=== PATIENT | male | born 1935 ===

== ENCOUNTER 2022-03-11 18:40 | Inpatient (IN) | payer MEDICARE, OTHER ==
[~2022-03-11] VITALS: Ht 177.8 cm; Wt 117.9 kg
[2022-03-12] MEDS ORDERED: INSULIN LI100 UNIT/6 SC (00:31)
[2022-03-12] MEDS ORDERED: BASAGLAR K100 UNIT/3 (00:31)
[2022-03-12] MEDS ORDERED: FUROSEMIDE20 MG PO (00:34)
[2022-03-12] MEDS ORDERED: ELIQUIS2.5 M1 PO (00:35)
[2022-03-12 01:05] LABS: Bicarbonate Venous 17.8 mmol/L (24.0-30.0); PCO2 Venous 41.2 mmHg (38-42)
[2022-03-12 01:06] LABS: pH Blood Venous 7.27 (7.34-7.37)
[2022-03-12 01:17] LABS: BASOPHILS ABSOLUTE AUTO 0.04 K/mm3 (0.00-0.23); BASOPHILS PERCENT AUTO 0 % (0-2); EOSINOPHILS PERCENT AUTO 0 % (0-6); Hemoglobin 10.4 g/dL (13.5-17.5); IMMATURE GRAN ABSOLUTE AUTO 0.63 K/mm3 (0.00-0.10); IMMATURE GRAN PERCENT AUTO 3 % (0-1); LYMPHOCYTES ABSOLUTE AUTO 1.51 K/mm3 (0.84-5.20); LYMPHOCYTES PERCENT AUTO 7 % (21-46); MONOCYTES ABSOLUTE AUTO 1.61 K/mm3 (0.16-1.47); MONOCYTES PERCENT AUTO 8 % (4-13); Mean Corpuscular HGB 36.4 pg (26.0-34.0); Mean Corpuscular HGB Conc 33.5 g/dL (31.5-36.5); Mean Corpuscular Volume 108 fL (80-100); Mean Platelet Volume 9.7 fL (9.1-12.4); NEUTROPHILS PERCENT AUTO 82 % (41-73); NRBC ABSOLUTE 0.53 K/mm3 (0.00-0.02); NRBC Auto 2.5 /100 WBC (0.0-0.2); Platelet Count 452 K/mm3 (150-400); RDW Coefficient Variation 14.7 % (11.7-14.2); RDW Standard Deviation 57.2 fL (35.1-46.3); Red Blood Cell Count 2.86 M/mm3 (4.30-5.90); White Blood Cell Count 20.79 K/mm3 (4.00-11.30)
[2022-03-12 01:49] LABS: Anti-Xa UFH, PHA Monitoring 0.21 IU/mL; International Normalized Ratio 1.17; Prothrombin Time Results 12.2 Sec (9.7-11.5)
[2022-03-12 01:59] LABS: Albumin, Blood 2.3 g/dL (3.4-5.0); Anion Gap 12 mmol/L (6-16); Blood Urea Nitrogen 89 mg/dL (8-24); Bun/Creatinine Ratio 17.6 (12.0-20.0); CO2, Blood 19 mmol/L (21-32); Chloride, Blood 109 mmol/L (98-108); Creatinine, Blood 5.06 mg/dL (0.60-1.20); Ferritin, Serum 200 ng/mL (26-388); Glomerular Filtration Rate 10 (60-); Glucose, Blood 206 mg/dL (70-99); Iron Serum 58 ug/dL (65-175); Percent Saturation 29.6 % (20.0-50.0); Phosphorus, Blood 4.6 mg/dL (2.5-4.9); Potassium, Blood 5.6 mmol/L (3.5-5.5); Sodium, Blood 140 mmol/L (136-145); Total Iron Binding Capacity 196 ug/dL (250-450)
[2022-03-12] MEDS ORDERED: ALLO300 PO (03:45)
[2022-03-12] MEDS ORDERED: ASPI81CH PO (03:46)
[2022-03-12] MEDS ORDERED: ATOR40TA PO (03:46)
[2022-03-12] MEDS ORDERED: CALC.25 PO (03:47)
[2022-03-12] MEDS ORDERED: CIPR500 PO (03:48)
[2022-03-12] MEDS ORDERED: FERSU300 PO (03:49)
[2022-03-12] MEDS ORDERED: GEMF600 PO (03:50)
[2022-03-12] MEDS ORDERED: LATA.005SO RIGHTEYE (03:50)
[2022-03-12] MEDS ORDERED: NYSTOP15 GM TOP (04:04)
[2022-03-12] MEDS ORDERED: OMEP20ER PO (04:05)
[2022-03-12] MEDS ORDERED: SYSTANE BALANCE10 ML OP (04:06)
[2022-03-12] MEDS ORDERED: Vitamin B-12100 MCG PO (04:07)
[2022-03-12] MEDS ORDERED: ACET325 (04:08)
[2022-03-12] MEDS ORDERED: THERA-D2000 UNIT PO (04:08)
[2022-03-12] MEDS ORDERED: Keflex250 MG PO (04:09)
--- NOTE | 2022-03-12 05:07 | NUR ---
PATIENT TO ROOM VIA EMS/LIFE FLIGHT AT 2340. PATIENT IS ALERT AND ORIENTED X4. MOVES ALL EXTREMETIES AND FOLLOWS COMMANDS, FENERALIZED WEAKNESS AND RLE WEAKNESS. 02 SATS >93% ON 2L VIA NC, DENIES SOB, LS DIM BUT CLEAR. ATTEMPTED TO WEAR CPAP BUT UNABLE TO USE OUR MASK. HR A. FIB, WITH BBB AT 90s-110. BP HYPOTENSIVE, LEVO INF. HEPARIN GTT STARTED PER HOSPITALIST. REMOVED MOLINA THAT WAS IN PLACE AND INSERTED NEW MOLINA, NO URINE OUTPUT, BLADDER SCAN DONE AND NO URINE NOTED. PURULENT DISCHARGE FROM PENIS. PATIENT HAD SMALL SOFT BROWN BM. CRITICAL PH CALLED TO HOSPITALIST, BICARB GTT STARTED. PHOTOS OF WOUNDS IN CHART. CALL LIGHT IN REACH. SEE ADMIT ASSESSMENT FOR MORE INFORMATION.
[2022-03-12 06:01] LABS: BASOPHILS ABSOLUTE AUTO 0.05 K/mm3 (0.00-0.23); BASOPHILS PERCENT AUTO 0 % (0-2); EOSINOPHILS PERCENT AUTO 0 % (0-6); Hematocrit 33.4 % (37.0-53.0); Hemoglobin 10.9 g/dL (13.5-17.5); IMMATURE GRAN ABSOLUTE AUTO 0.89 K/mm3 (0.00-0.10); IMMATURE GRAN PERCENT AUTO 4 % (0-1); LYMPHOCYTES ABSOLUTE AUTO 1.23 K/mm3 (0.84-5.20); LYMPHOCYTES PERCENT AUTO 5 % (21-46); MONOCYTES ABSOLUTE AUTO 1.97 K/mm3 (0.16-1.47); MONOCYTES PERCENT AUTO 8 % (4-13); Mean Corpuscular HGB 35.4 pg (26.0-34.0); Mean Corpuscular HGB Conc 32.6 g/dL (31.5-36.5); Mean Corpuscular Volume 108 fL (80-100); Mean Platelet Volume 9.6 fL (9.1-12.4); NEUTROPHILS ABSOLUTE AUTO 21.54 K/mm3 (1.96-9.15); NEUTROPHILS PERCENT AUTO 84 % (41-73); NRBC ABSOLUTE 0.63 K/mm3 (0.00-0.02); NRBC Auto 2.5 /100 WBC (0.0-0.2); Platelet Count 460 K/mm3 (150-400); RDW Coefficient Variation 14.7 % (11.7-14.2); RDW Standard Deviation 56.8 fL (35.1-46.3); Red Blood Cell Count 3.08 M/mm3 (4.30-5.90); White Blood Cell Count 25.68 K/mm3 (4.00-11.30)
[2022-03-12 06:18] LABS: Albumin, Blood 2.3 g/dL (3.4-5.0); Anion Gap 9 mmol/L (6-16); Blood Urea Nitrogen 90 mg/dL (8-24); Bun/Creatinine Ratio 17.1 (12.0-20.0); CO2, Blood 20 mmol/L (21-32); Calcium, Blood 8.9 mg/dL (8.5-10.1); Chloride, Blood 109 mmol/L (98-108); Creatinine, Blood 5.26 mg/dL (0.60-1.20); Glomerular Filtration Rate 10 (60-); Glucose, Blood 199 mg/dL (70-99); Potassium, Blood 6.4 mmol/L (3.5-5.5); Sodium, Blood 138 mmol/L (136-145)
[2022-03-12 06:21] LABS: Source, Urine Foley catheter
[2022-03-12 06:24] LABS: Bilirubin, Urine Neg (Neg); Blood, Urine 5+ (Neg); Glucose Qualitative, Urine 1+ (Neg); Ketones, Urine 1+ (Neg); Leukocyte Esterase, Urine 3+ (Neg); Nitrite, Urine Neg (Neg); Protein, Urine 4+ (Neg); Urobilinogen, Urine NORM (Normal)
[2022-03-12 06:32] LABS: Appearance, Urine Cloudy (Clear); Color, Urine Red (P-Yellow)
[2022-03-12 06:33] LABS: Amorphous Light (0-Heavy); Bacteria Many /hpf; Red Blood Cells, Urine TNTC /hpf (0-2); Squamous Epithelial Cells Rare /hpf (Few)
[2022-03-12 06:34] LABS: White Blood Cells, Urine TNTC /hpf (0-5)
--- NOTE | 2022-03-12 07:15 | NUR ---
Assumed care of pt at 0700. Report received from Bianca ARCOS. Pt is A&O x 4. Answers questions, follows commands, verbalizes needs. Pleasant and cooperative with care. Pt is wearing 2 LPM NC for SpO2 90% or greater. Tachycardic per montior, with BBB. Hypotensive. Receiving 10 mcg/min levophed, vasopression 0.04 units/minute.
--- NOTE | 2022-03-12 07:30 | NUR ---
Labile blood pressure reading. BP cuff on right upper arm. Unable to verify SBP with doppler because artery not compressing with cuff fully inflated. Able to verify BP with radial cuff and doppler.
--- NOTE | 2022-03-12 08:45 | NUR ---
Dr Stallings at bedside. Pt currently receiving echocardiogram. Provider states plan for patient to receive dialysis catheter today. Notified hospitalist that pt has increasing vasopressor requirements and that whizzer hand will be placing dialysis catheter. Order received for whizzer hand consult for line placement and ongoing management. Consult discussed with Dr Martin. Notified provider of echocardiogram results. Consult placed for Dr Sánchez.
--- NOTE | 2022-03-12 10:14 | NUR ---
Echocardiogram completed with stat overread requested and performed by Dr. Sánchez.
--- NOTE | 2022-03-12 10:25 | NUR ---
Pt is alert, oriented. He's pleasant and cooperative. He's being prepped for pericardial effusion drainage by Dr. Sánchez. Dr. Nash is at bedside with lithopone charger and bedside RN Yeimi. Update provided to pt's daughters Hiral and Jennifer, who identifies as an RN. Pt names Hiral as primary contact. Pt going to quality lab technician shortly. He will remain a full code at this time, and Dr. Martin will speak to pt directly regarding his wishes. Per Hiral, pt has not spoken to either daughter about his preferences. Plan to continue updating Hiral as the day progresses.
--- NOTE | 2022-03-12 11:35 | NUR ---
Patient back to microbiology lab analyst for pericardiocentesis. Prior to pt departure, arterial line placed for invasive BP measurement. Significant discrepancy noted between IBP and NIBP. Levophed decreased to 12 mcg/min prior to pt departure.
[2022-03-12 13:05] LABS: Automated BF RBC Count 2.479 M/mm3 (0-0); Automated BF WBC Count 3.679 K/mm3 (0-999); Body Fluid WBC Count 3679 /mm3 (0-999); RBC Count, Body Fluid 2479000 /mm3 (0-0)
[2022-03-12 13:39] LABS: Uric Acid, Blood 3.9 mg/dL (3.5-7.2)
[2022-03-12 14:05] LABS: Albumin, Body Fluid 1.8 g/dL; Glucose, Body Fluid 138 mg/dL
[2022-03-12 14:15] LABS: pH, Body Fluid 7.5
[2022-03-12 14:16] LABS: Total Cell Count, Body Fluid 100
[2022-03-12 14:19] LABS: Appearance, Body Fluid Bloody (Clear); Color, Body Fluid Red (None-Yellow)
[2022-03-12 14:25] LABS: Protein, Body Fluid 5.6 g/dL
[2022-03-12 14:49] LABS: Lactate Dehydrogenase, Body Fl 1786 U/L
--- NOTE | 2022-03-12 15:00 | NUR ---
Patient arrived back from vat house laborer at 1202 with peric[address] drain in place. On arrival, levophed and vasopressin off. Art line zeroed on arrival back to room. Levophed restarted at 2 mcg/min due to MAP less than 65. Per report from vat house laborer staff, 880 mL of ashley blood appearing drainage aspirated from drain. Dialysis catheter placed by Dr Martin to right neck. Plan for pt to continue with dialysis.
[2022-03-12 16:24] LABS: Hematocrit 30.3 % (37.0-53.0); Hemoglobin 9.7 g/dL (13.5-17.5)
--- NOTE | 2022-03-12 16:53 | NUR ---
Pt currently receiving dialysis. Levophed remains at 2 mcg/min. 67 mL of ashley red blood aspirated from port. Flushed with heparin. Pt tolerated well. H&H ordered by Dr Martin. Results reported to provider; plan to recheck at 2[address]. Cl[address] Dr Stallings that renal panel / potassium recheck tomorrow AM is acceptable; provider states this is okay however it can be rechecked sooner if pt has cardiac irregularities.
--- NOTE | 2022-03-12 18:13 | NUR ---
SUMMARY Neuro: Pt A&O x 4. Hard of hearing. Answers questions, follows commands, verbalizes needs. Pleasant and cooperative with care. Musculoskeletal: Moves all extremities with equal strength and range of motion. Limitation to hip flexion and movement of RLE due to right femoral artery line. Respiratory: Lungs diminished t/o. No cough. SpO2 90% or greater RA. Edema to BLE, unchanged from initial assessment. Cardiac: Vasopressor requirements significantly decreased after returning from cardiac orthodontic laboratory technician. HR improved. At beginning of shift, HR was tachcardic, regular, with BBB and no identifyable P waves. HR is now in 70s. Appears to be SR with BBB and 1st degree HB. Art line present to R groin; remains in place due to difficulty obtaining NIBP. Color, sensation, pulses, capillary refill equal BLE. Edema to BLE unchanged from initial assessment. GI: Hypoactive BT. NPO during shift due to procedures and frail medical state. Plan to provide pt with food/drink as he expresses desire. No BM this shift; no guiac sent. : Anuria. 20 mL of dark, tea urine drained this shift. Skin: Unchanged from initial assessment. Psychosocial: Pt in good spirits. Jokes with staff. Update given to daughters Hiral and Jennifer. Per pt, Hiral is his alternative decision maker.
--- NOTE | 2022-03-12 20:34 | NUR ---
ASSUMED CARE AT 1900 PATIENT IS ALERT AND ORIENTED X4, FOLLOWS COMMANDS, MOVES ALL EXTREMITIES. 02 SATS 98% ON RA, LS DIMINISHED T/O. HR SR WITH BBB 60s-70s, OCCASIONAL PVCs. LEVOPHED ON SB AT START OF SHIFT, PATIENT BLOOD PRESSURE SLOWLY DECLINED WITH A MAP IN THE 50s, LEVOPHED RESTARTED AT 2 MCG/MIN, WILL TITRATE NEEDED ART LINE IN PLACE . DRAINED PERICARDIAL DRAIN AT APPROX. 2000 WITH BLASTING GANG MINER AT BEDSIDE, SITE REMAINED STERILE, 100 MLS SNAGUINEOUS FLUID, URESIL TUBING FLUSHED WITH STERILE FLUSH, AND PERICARDIAL DRAIN FLUSHED WITH 5 MLS [address] STOPCOCK CLOSED. PATIENT NO LONGER HAVING REGULAR PVCs. DRESSING AROUND DRAIN C/D/I. DENIES CP/PRESSURE. MOLINA PATENT AND DRAINING MINIMAL AMOUNT OF CORNELL URINE. RIGHT TRIALYSIS CATHETER IN PLACE, BLEEDING FROM SITE SEEMS TO HAVE STOPPED. PATIENT REPOSITIONED, CALL LIGHT IN REACH. SEE SHIFT ASSESSMENT FOR MORE INFORMATION.
[2022-03-12 22:29] LABS: Hematocrit 25.3 % (37.0-53.0); Hemoglobin 8.3 g/dL (13.5-17.5)
[2022-03-13 00:49] LABS: BASOPHILS ABSOLUTE AUTO 0.01 K/mm3 (0.00-0.23); BASOPHILS PERCENT AUTO 0 % (0-2); EOSINOPHILS PERCENT AUTO 0 % (0-6); Hematocrit 24.9 % (37.0-53.0); Hemoglobin 8.2 g/dL (13.5-17.5); IMMATURE GRAN ABSOLUTE AUTO 0.16 K/mm3 (0.00-0.10); IMMATURE GRAN PERCENT AUTO 1 % (0-1); LYMPHOCYTES PERCENT AUTO 9 % (21-46); MONOCYTES ABSOLUTE AUTO 0.73 K/mm3 (0.16-1.47); MONOCYTES PERCENT AUTO 6 % (4-13); Mean Corpuscular HGB 34.5 pg (26.0-34.0); Mean Corpuscular HGB Conc 32.9 g/dL (31.5-36.5); Mean Corpuscular Volume 105 fL (80-100); Mean Platelet Volume 9.6 fL (9.1-12.4); NEUTROPHILS ABSOLUTE AUTO 10.81 K/mm3 (1.96-9.15); NEUTROPHILS PERCENT AUTO 84 % (41-73); NRBC ABSOLUTE 0.24 K/mm3 (0.00-0.02); NRBC Auto 1.9 /100 WBC (0.0-0.2); Platelet Count 228 K/mm3 (150-400); RDW Coefficient Variation 14.3 % (11.7-14.2); Red Blood Cell Count 2.38 M/mm3 (4.30-5.90); White Blood Cell Count 12.81 K/mm3 (4.00-11.30)
[2022-03-13 01:06] LABS: Albumin, Blood 1.9 g/dL (3.4-5.0); Anion Gap 7 mmol/L (6-16); Blood Urea Nitrogen 68 mg/dL (8-24); Bun/Creatinine Ratio 15.7 (12.0-20.0); CO2, Blood 28 mmol/L (21-32); Chloride, Blood 103 mmol/L (98-108); Creatinine, Blood 4.34 mg/dL (0.60-1.20); Glomerular Filtration Rate 13 (60-); Glucose, Blood 123 mg/dL (70-99); Phosphorus, Blood 4.8 mg/dL (2.5-4.9); Potassium, Blood 5.3 mmol/L (3.5-5.5); Sodium, Blood 138 mmol/L (136-145)
--- NOTE | 2022-03-13 01:20 | NUR ---
2359- PATIENT BECAME BRADYCARDIC HR DOWN TO 49, AFTER A MINUTE OR SO PATIENTS HR ABOVE 60 AGAIN. ART LINE IN PLACE AND BP REMAINS WITH MAP IN THE 60s, TITRATING LEVO PRN. 0054- PATIENT BECAME BRADYCARDIC AGAIN HR OF 46, DID NOT SUSTAIN FOR MORE THAN A MINUTE OR TWO. CHECKED LABS AND DID AND EKG. DR. SCRUGGS CALLED AND NOTIFIED OF BRADYCARDIC EPISODES. TO CALL IF PATIENT MAINTAINS. TELE STRIPS PRINTED AND IN CHART.
--- NOTE | 2022-03-13 03:32 | NUR ---
0316- WHILE GIVING THE PATIENT A BED BATH WE TURNED HIM TO HIS RIGHT SIDE TO CHANGE LINEN AND WASH HIS BACK, PATIENT BECAME BRADYCARDIC DOWN TO 26. LAID PATIENT FLAT IMMEDIATELY THEN TURNED HIM SLIGHTLY TO THE LEFT, HR CAME BACK UP TO 60s. PATIENT ALERT AND RESPONSIVE THE ENTIRE TIME.
--- NOTE | 2022-03-13 05:51 | NUR ---
SHIFT SUMMARY PATIENT REMAINS ALERT AND ORIENTED. 02 SATS >95% ON RA. PATIENT CONTINUES TO HAVE BRIEF BRADYCARDIC EPISODES WITH A HR IN THE 40s, SEE PREVIOUS NOTES. HR CURRENTLY A. FIB BBB AT 60, BP STABLE, ART LINE REMIANS IN PLACE, NON-INVASIVE BP NOT MATCHING ART LINE READING. PERICARDIAL DRAIN DRAINED EVERY 4 HOURS, OUTPUT OF 100, 33, THEN 14 THIS SHIFT, DRAIN FLUSHED WITH HEPARIN EACH TIME. DRESSING TO DRAIN C/D/I. MOLINA PATENT AND DRAINING TO GRAVITY, 40 MLS OUT THIS SHIFT. PATIENT REPOSITIONED MUCH HR WOULD ALLOW, POWDER APPLIED TO FOLDS. CALL LIGHT IN REACH.
[2022-03-13 05:59] LABS: BASOPHILS ABSOLUTE AUTO 0.01 K/mm3 (0.00-0.23); BASOPHILS PERCENT AUTO 0 % (0-2); EOSINOPHILS PERCENT AUTO 0 % (0-6); Hematocrit 23.5 % (37.0-53.0); Hemoglobin 7.9 g/dL (13.5-17.5); IMMATURE GRAN ABSOLUTE AUTO 0.11 K/mm3 (0.00-0.10); IMMATURE GRAN PERCENT AUTO 1 % (0-1); LYMPHOCYTES ABSOLUTE AUTO 0.91 K/mm3 (0.84-5.20); LYMPHOCYTES PERCENT AUTO 9 % (21-46); MONOCYTES ABSOLUTE AUTO 0.55 K/mm3 (0.16-1.47); MONOCYTES PERCENT AUTO 5 % (4-13); Mean Corpuscular HGB 36.2 pg (26.0-34.0); Mean Corpuscular HGB Conc 33.6 g/dL (31.5-36.5); Mean Corpuscular Volume 108 fL (80-100); Mean Platelet Volume 9.9 fL (9.1-12.4); NEUTROPHILS ABSOLUTE AUTO 9.02 K/mm3 (1.96-9.15); NEUTROPHILS PERCENT AUTO 85 % (41-73); NRBC Auto 1.9 /100 WBC (0.0-0.2); Platelet Count 227 K/mm3 (150-400); RDW Coefficient Variation 14.3 % (11.7-14.2); RDW Standard Deviation 54.4 fL (35.1-46.3); Red Blood Cell Count 2.18 M/mm3 (4.30-5.90)
[2022-03-13 06:27] LABS: Albumin, Blood 1.9 g/dL (3.4-5.0); Anion Gap 8 mmol/L (6-16); Blood Urea Nitrogen 71 mg/dL (8-24); CO2, Blood 26 mmol/L (21-32); Calcium, Blood 7.7 mg/dL (8.5-10.1); Chloride, Blood 105 mmol/L (98-108); Creatinine, Blood 4.72 mg/dL (0.60-1.20); Glomerular Filtration Rate 11 (60-); Glucose, Blood 118 mg/dL (70-99); Phosphorus, Blood 5.2 mg/dL (2.5-4.9); Potassium, Blood 5.6 mmol/L (3.5-5.5); Sodium, Blood 139 mmol/L (136-145)
--- NOTE | 2022-03-13 07:15 | NUR ---
Assumed care of pt at 0700. Report received from Bianca ARCOS. Pt A&O x 4. Answers questions, follows commands, verbalizes needs. Pleasant and cooperative with care. SpO2 90% or greater with room air. Atrial fibrillation per monitor with rate in 60s. BP stable. Levophed and vasopressin off.
--- NOTE | 2022-03-13 11:12 | NUR ---
Echocardiogram completed.
--- NOTE | 2022-03-13 13:09 | NUR ---
Pt is currently receiving dialysis, required levophed to be restarted at 2 mcg/min due to SBP 70s and MAP 40s per arterial line. Arterial line BPs still do not correlate with NIBP blood pressures. Dr Sánchez in to see patient. Discussed pt's transient bradycardia. Discussed drainage from pericardial drain. Plan to continue with existing plan of care.
--- NOTE | 2022-03-13 18:06 | NUR ---
SUMMARY Neuro: Pt A&O x 4. Hard of hearing. Answers questions, follows commands, verbalizes needs. Pleasant and cooperative with care. Musculoskeletal: Moves all extremities with equal strength and range of motion. Limitation to hip flexion and movement of RLE due to right femoral artery line. Respiratory: Lungs diminished t/o. No cough. SpO2 90% or greater RA. Edema to BLE, unchanged from initial assessment. Cardiac: Atrial fibrillation per monitor. BP dropped during dialysis and patient required maximum of 2 mcg/min levophed. Color, sensation, pulses, capillary refill BLE. Requires arterial line as it still does not correlate with NIBP. GI: Pt started with puree diet and thickened liquids today. No BM this shift. Unable to send guiac. : Anuria. Received hemodialysis today Skin: Unchanged from initial assessment. Psychosocial: Pt not as cheerful as yesterday. Affect is more flat. Family plans to visit tomorrow.
--- NOTE | 2022-03-13 23:23 | NUR ---
ASSUMED CARE AT 1900 PT LAYING IN BED SLEEPING AT CHANGE OF SHIFT. PT IS RESPONSIVE TO VERBAL STIMULI BUT SLEEPS WHEN NOT STIMULATED; APPREARS VERY WEAK; ORIENTED TO ALL EXCEPT DATE AND TIME. AFREBRILE. SPO2 >90% ON RA. HR VARIES, WHEN AT REST 50-70'S, RHYTHM AFLUTTER; WHEN TURNED TOWRADS THE RT SIDE, HR DECREASE TO 40'S, ASYPTOMATIC. SBP 100-130'S; MAP 60-70'S; ART LINE TO RT GROIN WITH DRESSING C/D/I. MOLINA IN PLACE WITH MINIMAL OUTPUT. BRUISES SCATTERED T/O BUE AND BLE. PERICARDIAL DRAIN IN PLACE TO LOWER STERNUM; 20ML OF SANGUINOUS FLUID DRAINED FOLLOWED BY FLUSHING WITH HEPARIN; DRESSING C/D/I. SEE SHIFT ASSESSMENT FOR FULL ASSESSMENT.
[2022-03-14 04:20] LABS: BASOPHILS ABSOLUTE AUTO 0.01 K/mm3 (0.00-0.23); BASOPHILS PERCENT AUTO 0 % (0-2); EOSINOPHILS PERCENT AUTO 0 % (0-6); Hematocrit 24.3 % (37.0-53.0); Hemoglobin 7.9 g/dL (13.5-17.5); IMMATURE GRAN ABSOLUTE AUTO 0.19 K/mm3 (0.00-0.10); IMMATURE GRAN PERCENT AUTO 2 % (0-1); LYMPHOCYTES ABSOLUTE AUTO 1.35 K/mm3 (0.84-5.20); LYMPHOCYTES PERCENT AUTO 10 % (21-46); MONOCYTES ABSOLUTE AUTO 0.79 K/mm3 (0.16-1.47); MONOCYTES PERCENT AUTO 6 % (4-13); Mean Corpuscular HGB 33.8 pg (26.0-34.0); Mean Corpuscular HGB Conc 32.5 g/dL (31.5-36.5); Mean Corpuscular Volume 104 fL (80-100); Mean Platelet Volume 9.2 fL (9.1-12.4); NEUTROPHILS ABSOLUTE AUTO 10.71 K/mm3 (1.96-9.15); NEUTROPHILS PERCENT AUTO 82 % (41-73); NRBC ABSOLUTE 0.35 K/mm3 (0.00-0.02); NRBC Auto 2.7 /100 WBC (0.0-0.2); Platelet Count 230 K/mm3 (150-400); RDW Coefficient Variation 14.2 % (11.7-14.2); RDW Standard Deviation 52.4 fL (35.1-46.3); Red Blood Cell Count 2.34 M/mm3 (4.30-5.90); White Blood Cell Count 13.05 K/mm3 (4.00-11.30)
[2022-03-14 04:35] LABS: Bun/Creatinine Ratio 14.6 (12.0-20.0); Calcium, Blood 7.6 mg/dL (8.5-10.1); Creatinine, Blood 4.04 mg/dL (0.60-1.20); Potassium, Blood 4.7 mmol/L (3.5-5.5)
[2022-03-14 05:11] LABS: HBSAG SCREEN Negative (Negative); HCV AB 0.1 (0.0-0.9); HEP A AB, IGM Negative (Negative); HEP B CORE AB, IGM Negative (Negative)
--- NOTE | 2022-03-14 06:10 | NUR ---
END OF SHIFT SUMMARY PT WAS ABLE TO SLEEP MOST OF THE NIGHT. HE IS ALERT/ORIENTED X3, NOT TO DATE OR TIME; PT IS WEAK AND LETHARGIC. SPO2 >95% ON RA. AFEBRILE. LEVOPHED STARTED WHILE PT WAS SLEEPING DUE TO SBP DECREASING TO 100'S AND MAP IN THE 40'S; PT IS VERY SENSATIVE TO LEVOPHED; TITRATED FROM SB TO 2MCG/MIN DUE TO LABILE PRESSURES; LEVOPHED INFUSING NOW AT 1MCG/MIN; SBP 120-170'S, MAP 50-70'S. HR 40-70. PERICARDIAL DRAIN WITH 55ML OUT THIS SHIFT; DRESSING C/D/I. MOLINA IN PLACE WITH 48ML OUTPUT. BLE WITH 4+ PITTING EDEMA, RLE WEEPING. ART LINE TO RT GROIN PATENT. TRIALYSIS CATH TO RIJ IN PLACE AND INFUSING. WILL REPORT TO AM RN WHEN AVAILABLE.
--- NOTE | 2022-03-14 07:15 | NUR ---
Assumed care of pt at 0700 from Lali ARCOS. Pt A&O x 4. Answers questions, follows commands, verbalizes needs. Pleasant and cooperative with care. Levophed at 1 mcg/min for MAP greater than 65 per arterial line. A fib per monitor with controlled rate. SpO2 90% or greater RA.
--- NOTE | 2022-03-14 14:00 | NUR ---
Dr Sánchez in to see patient. Provider removed pericardial drain. Petroleum gauze, 2x2, and tegaderm applied to site. Serosanguinous drainage from site. Dressing remains C/D/I. Provider states that eliquis will be held for several days and pt should not receive chemical VTE prophylaxis either for this period of time.
--- NOTE | 2022-03-14 17:17 | NUR ---
SUMMARY Neuro: Pt A&O x 4. Answers questions. Follows commands. Verbalizes needs. Pleasant and cooperative with care. Lethargic and falls asleep in the absence of stimulation. Musculoskeletal: Right groin arterial access precautions. Moves BUE and BLE. Requires total care for ADLs including repositioning, oral care, and feeding. Respiratory: Lungs clear t/o. Diminished in bases. SpO2 90% or greater with RA. Occasional dry cough. Cardiac: Heart rhythm fluctuates between atrial fibrillation and atrial flutter; rate 50s-80s. Per Dr Sánchez, no anticoagulation for atrial fibrillation or VTE prophylaxis to be given. Vasopressors off since pt received first dose of midodrine. Holding current dose of midodine for SBP 140 per arterial line. Insertion site at R groin free of drainage, Arterial line remains in place as NIBP does not correlate with invasive BP measurement. R brachial artery did not compress with manual BP measurement and doppler. L brachial NIBP offered inconsistent high/low readings per monitor. L/R radial offered MAP readings that varied by 10-20 mmHg in comparison to arterial line. Unable to utilize BLE for BP measurement due to weeping edema. Capillary refill <3 seconds BUE and BLE. Increasing edema BLE. New penile edema. Pericardial drain removed this shift by Dr Sánchez. GI: Hypoactive BT. Poor appetite. Between meal trays and PO medication administration, pt has had about 20 bites of puree diet today. No BM. Guiac not collected. : Anuria. 20 mL urine output this shift. Skin: Unchanged from initial assessment, with exception of pericardial drain site which is now dressed with Mextra Superabsorbant and tegaderm. No drainage noted to dressing. Psychosocial: Pt's daughters in town from [place] today. Plan to stay through weekend. Per family request, [facility] elders in to see patient and provide blessing. Pt's daughters requesting that pt transfer to different hospital when he is no longer requiring ICU level of care; they believe that pt will fail to thrive in absence of family due to long distance from [place]. They stated that even [facility] would be more favorable because pt's son lives there. Dr Puente notified and case management consult placed with aforemention details. Otherwise pt and family state satisfaction with care provided at this facility. Patient is withdrawn and flat affect in comparison to previous day shifts. Family encouraging patient to watch programs on TV that he enjoys.
--- NOTE | 2022-03-14 20:56 | NUR ---
ASSUMED CARE AT 1900 PT LAYING IN BED MORE ALERT DUE TO HIS DAUGHTERS BEING AT BEDSIDE. BOTH DAUGHTERS LEFT SHORTLY AFTER SHIFT CHANGE. PT IS MORE ORIENTED THAN PREVIOUS DAY; PT STATES THAT HE IS TIRED AND IS SLEEPING WHEN NOT STIMULATED. SPO2 >95% ON RA; HOME CPAP PROVIDED BY [facility] AND IS AT BEDSIDE; CPAP PLACED ON PT AFTER GIVEN TYLENOL FOR ACHINESS. HR 50-70'S; SBP 115-130, MAP 60-70'S; LEVOPHED OFF; PT STARTED ON MIDODRINE EARLIER TODAY; ART LINE TO RT GROIN IN PLACE WITH DRESSING C/D/I. EDEMA TO BLE WORSE THAN PREVIOUS DAY AND NOW STARTS AT HIS HIPS PROGRESSIVLY GETTING WORSE FURTHER DOWN HIS LEGS; RLE CONT TO WEEP. PT C/O ACID REFLEX, AT HOME HE STATES THAT HE EATS AND DRINKS SLOWLY AND THAT NORMALLY HELPS. PT ALSO SAID THAT HE HAS NOT BEEN EATING MUCH BECAUSE OF HIS REFLEX. MOLINA IN PLACE AND DRAINING MINIMAL URINE. DRESSING OVER PREVIOUS PERICARDIAL DRAIN SITE IS C/D/I, NO DRAINAGE NOTED ON DRESSING. SEE SHIFT ASSESSMENT FOR FULL ASSESSMENT.
[2022-03-15 04:27] LABS: BASOPHILS ABSOLUTE AUTO 0.02 K/mm3 (0.00-0.23); BASOPHILS PERCENT AUTO 0 % (0-2); EOSINOPHILS PERCENT AUTO 0 % (0-6); Hematocrit 24.7 % (37.0-53.0); Hemoglobin 8.2 g/dL (13.5-17.5); IMMATURE GRAN ABSOLUTE AUTO 0.26 K/mm3 (0.00-0.10); IMMATURE GRAN PERCENT AUTO 2 % (0-1); LYMPHOCYTES ABSOLUTE AUTO 1.44 K/mm3 (0.84-5.20); LYMPHOCYTES PERCENT AUTO 10 % (21-46); MONOCYTES ABSOLUTE AUTO 0.83 K/mm3 (0.16-1.47); MONOCYTES PERCENT AUTO 6 % (4-13); Mean Corpuscular HGB 34.9 pg (26.0-34.0); Mean Corpuscular HGB Conc 33.2 g/dL (31.5-36.5); Mean Corpuscular Volume 105 fL (80-100); Mean Platelet Volume 9.5 fL (9.1-12.4); NEUTROPHILS ABSOLUTE AUTO 11.32 K/mm3 (1.96-9.15); NEUTROPHILS PERCENT AUTO 82 % (41-73); NRBC ABSOLUTE 0.34 K/mm3 (0.00-0.02); NRBC Auto 2.5 /100 WBC (0.0-0.2); Platelet Count 243 K/mm3 (150-400); RDW Coefficient Variation 14.5 % (11.7-14.2); RDW Standard Deviation 53.2 fL (35.1-46.3); Red Blood Cell Count 2.35 M/mm3 (4.30-5.90); White Blood Cell Count 13.87 K/mm3 (4.00-11.30)
[2022-03-15 04:44] LABS: Bun/Creatinine Ratio 14.5 (12.0-20.0); Calcium, Blood 8.4 mg/dL (8.5-10.1); Creatinine, Blood 3.73 mg/dL (0.60-1.20); Magnesium, Blood 2.1 mg/dL (1.6-2.4); Phosphorus, Blood 4.6 mg/dL (2.5-4.9); Potassium, Blood 4.1 mmol/L (3.5-5.5)
--- NOTE | 2022-03-15 05:57 | NUR ---
END OF SHIFT SUMMARY PT SLEPT ON AND OFF ALL NIGHT; HE SEEMS TO BE MORE EXPRESSIVE AND LESS WITHDRAWN. PT IS A/O X4 AND ABLE TO MAKE HIS NEEDS KNOWN. SPO2 >95% ON RA; ATTEMPTED TO USE HOME CPAP AND PT COULD NOT BE COMFORTABLE WITH IT; RN AND RT ATTEMPTED SEVERAL TIMES TO ADJUST BUT PT JUST REFUSED AFTER A WHILE. PT PLACED BACK ON SMALL DOSE LEVOPHED WHILE SLEEPING DUE TO MAP IN LOW 50'S, HIGH 40'S; THIS WAS STARTED AFTER GIVING MIDODRINE; LEVOPHED INFUSING AT 1MCG/MIN; ART LINE TO RT GROIN DRESSING C/D/I. AFEBRILE. ONE SMALL BM THIS SHIFT. MOLINA IN PLACE WITH 45ML URINE OUTPUT. RLE CONT TO WEEP. DRESSING OVER PREVIOUS PERICARDIAL DRAIN SITE C/D/I, NO DRAINAGE NOTED. TRIALYSIS CATH TO RIJ PATENT. WILL REPORT TO AM RN WHEN AVAILABLE.
--- NOTE | 2022-03-15 07:23 | NUR ---
REPORT FROM PM JOSSELYN CHUA, PATIENTALERT AND ORIENTED [facility], MAKES NEEDS KNOWN, CALL LIGHT WITH IN REACH, NO DISTRESS, CALM AND PLEASANT THIS AM, DAUGHTERS TO BE IN TODAY
--- NOTE | 2022-03-15 10:20 | NUR ---
DR RUBIN ROUNDED AT 08, NO NEW ORDERS, REPORTED CMP, DIALYSIS TO BE DONE TODAY. 908 FACE TIME CALL WITH DR LIU, DIALYSIS STARTED, NO NEW CHANGES. DR BALL ROUNDED ORDERED A STAT ECHO TO SEE HOW THE PERICARDIAL EFFUSION HAS IMPROVED OR WORSENED. DR CHENG ROUNDED, PATIENT ONLY ON 1 MCG OF LEVOPHED, SBP 140, DR CHENG OKAY WAITING TO GIVE MIDODRINE AFTER DIALYSIS, PATIENTS DAUGHTERS AT BEDSIDE, HELPFUL WITH CARE. CALL LIGHT WITH IN REACH
--- NOTE | 2022-03-15 12:36 | NUR ---
3000 out with dialysis, kenzie and chavo daughters at bedside, left for lunch, patient repositioned, ate lunch hob 75%, patient belching, pleasant and cooperative, call light with in reach
--- NOTE | 2022-03-15 18:30 | NUR ---
PATIENT AWAKE, OREINTED, MAKES NEEDS KNOWN, SLOW TO RESPOND, NEEDS QUEING AT TIMES, PLEASANT AND COOPERATIVE TO CARE. LS DIMINSHED, CLEARS CONGESTION WITH COUGH, SATS 96% ON RA, ENCOURAGED TO DEEP BREATH AND COUGH. DENIES CP, ART LINE AND PERIPHERAL BP NOT CORRIALATED, BRACHIAL PULSES KING WIHT DOPPLER FOUND EASY, PATIENTS HEART RATE AND ART LINE DECREASE WHEN PATIENT COUGHS, SNEEZES, HICUPS, OR SWALLOWS, REPORTED TO DR CHENG POSSIBLE VASAL VAGAL, ART LINE TO STAY IN PLACE OF NOW PER DR CHENG, LEVOPHED OFF AT NOON TODAY. ATE ALL MEALS 20-40%, OUTPUT 120 MLS PER MOLINA, SCROTUMN SWOLLEN, CREAM TO BUTTOCK AND POWDER TO GROIN AND ABD FOLDS, RIGHT LEG ELEVATED WITH DRY FLOWS, WEEPING FROM BLISTERS, LEFT LEG ELEVATED EDEMATOUS BUT NOT WEEPING. FOLLOW UP ECHO DONE TODAY TO MONITOR PERICARDIAL EFFUSION, ECHO SHOWED IT HAD IMPROVED PER SOLUTION ENGINEER, CALL LIGHT WITH IN REACH, WCTM
--- NOTE | 2022-03-15 22:07 | NUR ---
ASSUMED PT CARE AT 1915 PT SITTING UP IN BED. ALERT AND ORIENTED X4. ABLE TO MAKE NEEDS KNOWN. ART LINE TO RIGHT GROIN; ZERO'D WITH GOOD PLETH AND DICROTIC NOTCH NOTED. NON-INVASIVE BP CUFF TO RIGHT UPPER ARM IS CORRELATING WELL. DRESSING IN PLACE TO OLD PERICARDIAL DRAIN SITE THAT IS CDI. CHANGED BOTH DRESSINGS TO RIGHT GROIN AND TRIALYSIS CATH SITE TO RIGHT SIDE OF NECK D/T DISPLACED AND SOILED. PT NOTED TO BE AFIB WITH HR 70'S. PT IS SALINE LOCKED AT THIS TIME. PERIPHERAL IV TO RIGHT UPPER ARM WAS D/C'D, AND RIGHT WRIST IS PATENT AND FLUSHING. MOLINA CATHETER IS PATENT AND DRAINING; DARK CORNELL COLORED URINE TO GRAVITY. PT IS VERY EDEMATOUS AND WEEPING FROM BILATERAL LOWER EXTREMITIES. PT IS ON ROOM AIR WITH OXYGEN SATURATIONS >90%. DENIES SOB, WELL ANY CHEST PAIN. SKIN IS VERY FRAGILE WITH SCATTERED/DIFFUSE BRUISING TO BILATERAL UPPER ARMS/ABDOMEN. BUTTOCK/COCCYX AREA APPEARS TO HAVE A DTI WITH DIFFUSE DISCOLORATION OF BLACK/BLUE BRUISING; AREA IS BLANCHABLE AND INTACT. BILATERAL LOWER EXTREMITIES ARE RED WITH OPEN AVULSIONS MOST LIKELY FROM SWELLING. CALL LIGHT WITHIN REACH; PT ABLE TO MAKE NEEDS KNOWN. SEE SHIFT ASSESSMENT FOR FURTHER DETAILS.
--- NOTE | 2022-03-16 00:57 | NUR ---
RESTARTED LEVOPHED MAP'S DROPPED TO LOW 50'S, RESTARTED LEVO AT 1MCG/MIN. PT CONTINUES TO SANTOS WITH NO PREDISPOSING CAUSES. PT REMAINS AFIB WITH RATE 70'S, BUT HAS DROPPED LOW 37
[2022-03-16 05:32] LABS: BASOPHILS ABSOLUTE AUTO 0.02 K/mm3 (0.00-0.23); BASOPHILS PERCENT AUTO 0 % (0-2); EOSINOPHILS PERCENT AUTO 0 % (0-6); Hematocrit 25.3 % (37.0-53.0); Hemoglobin 8.3 g/dL (13.5-17.5); IMMATURE GRAN ABSOLUTE AUTO 0.36 K/mm3 (0.00-0.10); IMMATURE GRAN PERCENT AUTO 3 % (0-1); LYMPHOCYTES ABSOLUTE AUTO 1.36 K/mm3 (0.84-5.20); LYMPHOCYTES PERCENT AUTO 10 % (21-46); MONOCYTES PERCENT AUTO 6 % (4-13); Mean Corpuscular HGB Conc 32.8 g/dL (31.5-36.5); Mean Corpuscular Volume 107 fL (80-100); NEUTROPHILS ABSOLUTE AUTO 11.38 K/mm3 (1.96-9.15); NEUTROPHILS PERCENT AUTO 81 % (41-73); NRBC ABSOLUTE 0.24 K/mm3 (0.00-0.02); NRBC Auto 1.7 /100 WBC (0.0-0.2); Platelet Count 219 K/mm3 (150-400); RDW Coefficient Variation 15.2 % (11.7-14.2); RDW Standard Deviation 54.6 fL (35.1-46.3); Red Blood Cell Count 2.37 M/mm3 (4.30-5.90); White Blood Cell Count 14.02 K/mm3 (4.00-11.30)
[2022-03-16 05:46] LABS: Albumin, Blood 2.1 g/dL (3.4-5.0); Anion Gap 7 mmol/L (6-16); Blood Urea Nitrogen 45 mg/dL (8-24); Bun/Creatinine Ratio 12.7 (12.0-20.0); CO2, Blood 29 mmol/L (21-32); Calcium, Blood 9.4 mg/dL (8.5-10.1); Chloride, Blood 104 mmol/L (98-108); Creatinine, Blood 3.54 mg/dL (0.60-1.20); Glomerular Filtration Rate 16 (60-); Glucose, Blood 128 mg/dL (70-99); Magnesium, Blood 2.2 mg/dL (1.6-2.4); Phosphorus, Blood 4.3 mg/dL (2.5-4.9); Potassium, Blood 4.3 mmol/L (3.5-5.5); Sodium, Blood 140 mmol/L (136-145)
--- NOTE | 2022-03-16 06:06 | NUR ---
END OF SHIFT SUMMARY PT DIDN'T SLEEP MUCH AT ALL. KEPT ASKING TO BE REPOSITIONED TO LEFT SIDE AFTER REPOSITIONING HIM TO HIS RIGHT. STATES HIS BOTTOM HURT. KEPT HARD TURNING TO KEEP PT OFF HIS BUTTOCKS. ARTERIAL LINE REMAINS TO RIGHT GROIN WITH STABLE BP'S. LEVOPHED WAS ONLY RESTARTED FOR A SHORT WHILE AND THEN TURNED OFF. NON-INVASIVE CUFF MEASUREMENTS AREN'T CORRELATING VERY WELL TO ARTERIAL BP'S. PT REMAINS SALINE LOCKED AT THIS TIME. GIVEN COMPAZINE 10MG D/T HICCUPS THAT PT C/O BEING UNCOMFORTABLE. PT CONTINUED TO SANTOS T/O NIGHT TO THE 30'S FOR UNKNOWN REASONS. NO PREDIPOSING FACTORS WERE NOTED. AFIB WITH RATE 50-70'S. DRESSING TO PERICARDIAL SITE REMAINS INTACT. MINIMAL URINE OUTPUT THIS SHIFT; DARK CORNELL. PT REMAINS VERY EDEMATOUS AND WEEPING FROM BLE'S. REMAINED ON ROOM AIR WITH OXYGEN SATURATIONS >90%. DENIED SOB AND/OR CHEST PAIN. WILL CONTINUE TO MONITOR UNTIL REPORT IS HANDED OFF TO ONCOMING RN.
--- NOTE | 2022-03-16 08:53 | NUR ---
ASSUMED CARE OF LUZ MARIA AT 0700, HE HAS BEEN VERY SLEEPY. AWAKENS TO LOUD SPOKEN VOICE, BUT RETURNS TO SLEEP. HOLDING OFF ON THE MIDODRINE UNTIL HE IS MORE AWAKE TO SWALLOW THE MED IN APPLESAUCE. HIS LUNGS ARE CLEAR, ON ROOM AIR WITH SATS 100%. BELLY ACTIVE, HICCUPS INTERMITTENTLY. MOLINA TO GRAVITY DRAINAGE WITH MINIMAL OUTPUT. DAUGHTERS IN [place] TO SAY GOODBYE BEFORE TRAVELING. STILL LARGE MARGIN OF CORRELATING BETWEEN THE NIBP AND THE ART LINE. WILL CONTINUE TO MONITOR. HEART RATE REMAINS SANTOS WITH DROPS TO THE 30S. WILL DISCUSS WITH SHAREPOINT DESIGNER DEVELOPER.
--- NOTE | 2022-03-16 13:36 | NUR ---
LUZ MARIA GOT UP WITH JUSTIN FROM OT, HE WORKED HARD TO GET OUT OF BED AND TRANSFER TO THE RECLINER. HIS RIGHT GROIN ARTERIAL LINE WAS REMOVED PER PROTOCOL WITH REQUEST FROM . HE TOLERATED THIS WELL BUT BECAME VERY UNCOMFORTABLE IN THE CHAIR WHILE LYING BACK FOR THE PRESSURE HOLD ON THE GROIN SITE. HE WAS REPOSITIONED A FEW TIMES AFTERWARDS TO NO COMFORT. HE WAS LIFTED BACK TO BED VIA KATIE LIFT PAD AND CEILING LIFT WITH HELP FROM PIPPA AND MYSELF. HE PROMPTLY FELL ASLEEP. HE IS FLOATED ON PILLOWS TO KEEP HIS BUTTOCKS OFF THE MATTRESS. HE WAS FED LUNCH PRIOR TO WORKING WITH OT, HE ONLY ATE A SMALL PORTION. WILL CONTINUE TO ENCOURAGE HIS NUTRITION. LOWER TRUNK, SCROTUM, PENIS, THIGHS AND ANKLES ARE PITTING EDEMA WITH THE LOWER LEGS BEGINNING TO WEEP. MINIMAL OUTPUT FROM MOLINA, EXPECTED WITH DIALYSIS THIS AM.
[2022-03-16 14:09] LABS: A/G RATIO 0.8 (0.7-1.7); ALBUMIN 2.3 g/dL (2.9-4.4); ALPHA-1-GLOBULIN 0.3 g/dL (0.0-0.4); ALPHA-2-GLOBULIN 0.8 g/dL (0.4-1.0); BETA GLOBULIN 0.7 g/dL (0.7-1.3); GAMMA GLOBULIN 1.1 g/dL (0.4-1.8); GLOBULIN, TOTAL 2.8 g/dL (2.2-3.9); M-SPIKE Not Observed g/dL (Not Observed); PROTEIN, TOTAL, SERUM 5.1 g/dL (6.0-8.5)
--- NOTE | 2022-03-16 15:18 | NUR ---
PT'S BLOOD PRESSURE IS LOW, SBP 80'S. DISCUSSED WITH AND HE IS AWARE, NOTED THAT ART LINE WAS READING ABOUT 20 PTS HIGHER AND PT DENIES ANY COMPLAINTS. WE ARE TO SHOOT FOR SBP 90'S.
--- NOTE | 2022-03-16 18:14 | NUR ---
LUZ MARIA WAS ABLE TO GET OUT THE ART LINE TODAY, WAS ABLE TO GET OUT OF BED AND IN TO THE CHAIR WITH ASSISTANCE. HIS BREATHING IS IMPROVED AND HIS COUGH IS STRONGER. HE CONTINUES ON ROOM AIR, SATS 99-100, HEART RATE REMAINS BRADYCARDIC WITH DIPS TO MID 30S. WAS CALLED AFTER A 2-3 MINUTES OF MAINTAINING RATE IN THE 30S. HE STATES THAT HE WOULD LIKE TO CONTINUE TO WATCH AND NOT TREAT THIS. SAYING IT IS NORMAL FOR SOME PEOPLE TO DROP WHILE SLEEPING. BP REMAINS LOW SBP 100'S, AWARE BUT NOTED THAT THE ART LINE READ ~20 PTS HIGHER AND TO NOT BE TOO CONCERNED AT THIS POINT. LUZ MARIA HAD DIALYSIS THIS MORNING. SKIPPING BREAKFAST, TAKING IN ROUGHLY 40% OF LUNCH AND ABOUT 6-8 BITES OF DINNER. HE HAS TAKEN IN ONLY ABOUT 6 TEASPOONS OF WATER. HIS TRUNK FROM HIPS DOWN TO HIS TOES HAS PITTING EDEMA DESPITE THE DIALYSIS TODAY. IT IS WEEPING ON THE LEGS. ARMS ARE ECCHYMOTIC IN VARIOUS AREAS. HE IS PLEASANT AND COOPERATIVE.
--- NOTE | 2022-03-16 20:00 | NUR ---
Assumed Care. AOx3, NIKOLAI. Aches all over. Repositioned which appeared to help some. Denies need for pain meds. LS dim t/o, moist cough, non-productive, sats >90% on RA. Very fatiqued and tired. Afib with Terrance rhythm, drops down in 30's at times. Denies any chest pain. General edema all over 3+, weeping to BLE. Abd soft non-tender, BM today, poor appetite, active BT. Bottom red but blanchable, removed wrinkled pad from underneath. Elevated legs on pillows. Denies any needs at this time. Call light is in reach.
[2022-03-17 03:40] LABS: BASOPHILS ABSOLUTE AUTO 0.01 K/mm3 (0.00-0.23); BASOPHILS PERCENT AUTO 0 % (0-2); EOSINOPHILS PERCENT AUTO 0 % (0-6); Hematocrit 26.9 % (37.0-53.0); Hemoglobin 8.3 g/dL (13.5-17.5); IMMATURE GRAN ABSOLUTE AUTO 0.29 K/mm3 (0.00-0.10); IMMATURE GRAN PERCENT AUTO 2 % (0-1); LYMPHOCYTES ABSOLUTE AUTO 1.44 K/mm3 (0.84-5.20); LYMPHOCYTES PERCENT AUTO 11 % (21-46); MONOCYTES ABSOLUTE AUTO 0.81 K/mm3 (0.16-1.47); MONOCYTES PERCENT AUTO 6 % (4-13); Mean Corpuscular HGB 34.3 pg (26.0-34.0); Mean Corpuscular HGB Conc 30.9 g/dL (31.5-36.5); Mean Corpuscular Volume 111 fL (80-100); Mean Platelet Volume 9.3 fL (9.1-12.4); NEUTROPHILS ABSOLUTE AUTO 10.05 K/mm3 (1.96-9.15); NEUTROPHILS PERCENT AUTO 80 % (41-73); NRBC ABSOLUTE 0.08 K/mm3 (0.00-0.02); NRBC Auto 0.6 /100 WBC (0.0-0.2); Platelet Count 211 K/mm3 (150-400); RDW Standard Deviation 56.5 fL (35.1-46.3); Red Blood Cell Count 2.42 M/mm3 (4.30-5.90)
[2022-03-17 03:56] LABS: Albumin, Blood 2.1 g/dL (3.4-5.0); Anion Gap 9 mmol/L (6-16); Blood Urea Nitrogen 39 mg/dL (8-24); Bun/Creatinine Ratio 11.3 (12.0-20.0); CO2, Blood 29 mmol/L (21-32); Calcium, Blood 8.6 mg/dL (8.5-10.1); Chloride, Blood 105 mmol/L (98-108); Creatinine, Blood 3.44 mg/dL (0.60-1.20); Glomerular Filtration Rate 17 (60-); Glucose, Blood 113 mg/dL (70-99); Magnesium, Blood 2.2 mg/dL (1.6-2.4); Potassium, Blood 4.2 mmol/L (3.5-5.5); Sodium, Blood 143 mmol/L (136-145)
--- NOTE | 2022-03-17 06:23 | NUR ---
Shift Summary: Sacha had difficulty sleeping due to hickups t/o night dispite some intervention to help. NPO after midnight for possible perma cath placement. Some discomfort and aches at which tylenol helped. He continues to be on RA, sats 98-100. Heart Rate Bradycardic with dips as low as 32 and average low 50's, occational pauses noted. SBP has been presistent below 100, with lowest hitting in mid 80's but came right back up. Dr. Sánchez is aware of heart rate and states he does not want to treat at this time. 3+ pitting edema generalized t/o. Weeping from BLE. Only had estimated 50 cc of water. Hernandez output 50cc. Afebrile. Will report to dayshift. Call light in reach.
--- NOTE | 2022-03-17 07:55 | NUR ---
Received report from Jazzy ARCOS. Patient awake in room and was able to answer questions approppriately. He states has hiccups very frequently and fluids comes back through nose, this has been going on for last few months. He has RIJ trialysis cath and D[facility] is in room now hooking him up. He is to have perma cath placed today. He has 20ga IV to RW and dressing intact and site WNL's and is flushed and SL'd. He has 16 Fr Hernandez draining light lisa urine to gravity. He is on RS and sats 100% while awake. He is in A-Fib in the 50's and systolic >100's. He has 3+ putting edema to LE's with some minimal weeping.
--- NOTE | 2022-03-17 11:07 | NUR ---
Patient remains on Dialysis and tolerated am meds with applesauce. Family called and gave update. Systolis has been >90's.
--- NOTE | 2022-03-17 11:30 | NUR ---
Patient is awake and resting quietly, he states he has been belching alot and swallowing air. He has had small amount of emesis, mostly mucus/saliva. Systolic remains >100 and HR 50's.
[2022-03-17 12:39] LABS: Influenza A, PCR NEGATIVE (NEGATIVE); Influenza B, PCR NEGATIVE (NEGATIVE); Resp Syncytial Virus, PCR NEGATIVE (NEGATIVE); SARS-Cov-2 (COVID-19) PCR, MMC NEGATIVE (NEGATIVE)
--- NOTE | 2022-03-17 12:54 | NUR ---
Day surgery her and getting consents, Dr johnson and Dr Mayorga here as well. The are preparing for procedure. He has had continued belching and increased emesis of about 100 ml's. Last CBG 95.
--- NOTE | 2022-03-17 13:30 | NUR ---
03/17/22 1330 Moises Hathaway PT ON SCHEDULED ROCEPHIN. NO ADDITIONAL ABX PER SURGEON. NO BEAR HUGGER PER ANESTHESIA.
--- NOTE | 2022-03-17 15:37 | NUR ---
Patient returned shortly after 1400 and started recovery. He stated he needed bedpan and had large soft stool and cleaned nup and changed linen. He had run of possible V-Tach and was not responding and then shortly after had another short run and color very west, talkled with Dr Martin and he wanted Dr Adame called and he stated good placement and Dr Martin did US of heart. Patient continues to be nauseated from air in belly and will place order for reglan for hiccups.
--- NOTE | 2022-03-17 17:45 | NUR ---
Pt having significan symptomatic intractable hiccups. He denies headache or ringing in his earsHe feels short of breath and life he is having gerd and wanting to vomit and her is trmulous after a few bouts of hickups. sppears to be causeing great fatigue and decreasing his reponsivenss. Pt has had runs of vtach today. Review of treamtns and possible cause with phsycian and nursing. Pt high risk risk for sudden cardiac event. Will suggsest if he gets any worse to call family. [place].
--- NOTE | 2022-03-17 17:48 | NUR ---
Patiet resting currently. Medicated with compazine and reglan to possibly help with hiccups and his belching. Gave meds with thickened apple juice. Systolic trending 80-100's and HR 50-60's. IV meds given in RW 20ga, flushed and SL'd. Sats 98% on RA.
--- NOTE | 2022-03-17 18:01 | NUR ---
Spoke with Dr Weaver about patient and possible runs of V-Tach, no new orders.
--- NOTE | 2022-03-17 20:10 | NUR ---
PT'S DAUGHTER, CHAYO, IS UPDATED BY PHONE. PT'S SON PLANS ON COMING FOR A VISIT TOMORROW.
--- NOTE | 2022-03-18 00:20 | NUR ---
SPOKE WITH HOSPITALIST ABOUT PT C/O PAIN/DISCOMFORT DESPITE REPOSITIONING AND PO TYLENOL. ORDER FOR FENTANYL RECEIVED.
--- NOTE | 2022-03-18 02:05 | NUR ---
SPOKE WITH HOSPITALIST ABOUT PT'S C/O HICCUPS, REFLUX, AND NAUSEA. ORDERS FOR IV PROTONIX, AND INCREASE FREQUENCY OF IV ZOFRAN.
[2022-03-18 04:30] LABS: BASOPHILS ABSOLUTE AUTO 0.03 K/mm3 (0.00-0.23); BASOPHILS PERCENT AUTO 0 % (0-2); EOSINOPHILS PERCENT AUTO 0 % (0-6); Hematocrit 27.7 % (37.0-53.0); IMMATURE GRAN PERCENT AUTO 3 % (0-1); LYMPHOCYTES ABSOLUTE AUTO 1.31 K/mm3 (0.84-5.20); LYMPHOCYTES PERCENT AUTO 10 % (21-46); MONOCYTES ABSOLUTE AUTO 1.14 K/mm3 (0.16-1.47); MONOCYTES PERCENT AUTO 8 % (4-13); Mean Corpuscular HGB 36.7 pg (26.0-34.0); Mean Corpuscular HGB Conc 32.5 g/dL (31.5-36.5); Mean Corpuscular Volume 113 fL (80-100); Mean Platelet Volume 9.3 fL (9.1-12.4); NEUTROPHILS ABSOLUTE AUTO 10.69 K/mm3 (1.96-9.15); NEUTROPHILS PERCENT AUTO 79 % (41-73); NRBC ABSOLUTE 0.08 K/mm3 (0.00-0.02); NRBC Auto 0.6 /100 WBC (0.0-0.2); Platelet Count 214 K/mm3 (150-400); RDW Coefficient Variation 16.7 % (11.7-14.2); RDW Standard Deviation 59.4 fL (35.1-46.3); Red Blood Cell Count 2.45 M/mm3 (4.30-5.90); White Blood Cell Count 13.57 K/mm3 (4.00-11.30)
[2022-03-18 04:47] LABS: Albumin, Blood 2.3 g/dL (3.4-5.0); Anion Gap 10 mmol/L (6-16); Blood Urea Nitrogen 40 mg/dL (8-24); Bun/Creatinine Ratio 11.7 (12.0-20.0); CO2, Blood 27 mmol/L (21-32); Calcium, Blood 8.1 mg/dL (8.5-10.1); Chloride, Blood 106 mmol/L (98-108); Creatinine, Blood 3.43 mg/dL (0.60-1.20); Glomerular Filtration Rate 17 (60-); Glucose, Blood 114 mg/dL (70-99); Phosphorus, Blood 4.2 mg/dL (2.5-4.9); Sodium, Blood 143 mmol/L (136-145)
--- NOTE | 2022-03-18 08:00 | NUR ---
Received reprt from Keyla ARCOS. Patient resting in bed and awakens to verbal stimului. Dialysis has started and nurse states flow restriction issues and is only alloweing her to use 2/3 flow rate. He has Powerglide in JULIO flushed and infusing NS TKO. He also has 20ga IV RW and is flushed and SL'd. He has RIJ Trialysis cath that will leave in to assure new permacathe works well. He continues to hace 3+ penial, scrotal, hip and LE bilateral edema. LE's weeping and SCD's in place.
--- NOTE | 2022-03-18 09:30 | NUR ---
Dialysis continues and she continues bridgett have restriction in new perma cath. Patient tolerated am meds with applesauce.
--- NOTE | 2022-03-18 11:30 | NUR ---
Patient finished dialysis and is resting. He remains hypotensive and Dr Martin in increasing his Midodrine. HR is in the 70-80's.
--- NOTE | 2022-03-18 13:30 | NUR ---
Patients Levophed increased to 6 mcg/kg/min. Bath and linen change and reposition. Family at bedside, Dr Martin went in and talked with family.
--- NOTE | 2022-03-18 15:31 | NUR ---
Speech came and worked with patient and he was getting tired . ST left same restrictions and he tolerated while not hiccuping or belching at that time. Increased levophed to 10 mcg/min and systolic currently 100's. Family has gone for awhile.
--- NOTE | 2022-03-18 18:33 | NUR ---
Medicated patient for pain post repositioning and he has been sleeping since. He remains on RA and sats >95. Family at bed. titrated Levophed down to 8 mcg/min for MAP 76, and NS TKO, gave 2GM of Calcium Gluconate. HR in the 80-90's, systolic >100. SCD's in place and stay dries under legs for weaping edema LE's.
--- NOTE | 2022-03-18 20:00 | NUR ---
ASSUMED CARE OF PT AT 1915. REPORT RECEIVED AT BEDSIDE. PT PRESENTS IN BED. ALERT AND ORIENTED. VERY [place]. DISCUSSED WITH PT Q 2 HOUR POSITIONING. PT HAS NOTEABLE SINGULTUS THAT HE HAS BEEN HAVING ONGOING ISSUES. THORAZINE HAS BEEN ORDERED TO TRY AND HALT THESE. PER OFFGOING RN, PT DID NOT RESPOND TO THORAZINE AND SINGULTUS CONTINUES. LEVOPHED FOR BLOOD PRESSURE SUPPORT. WILL ATTEMPT TO WEAN PT LOWER IF ABLE. OF NOTE: PT'S BLOOD PRESSURES ON RIGHT ARM HAVE BEEN INCONSISTANT. WILL REVIEW CHART AND PLAN OF CARE FOR THIS PT.
--- NOTE | 2022-03-19 00:51 | NUR ---
PT MEDICATED WITH THORAZINE FOR SINGULTUS AND 25 MCG'S FENTANYL FOR COMPLAINTS OF BACK PAIN. PT REQUESTS TO BE REPOSITIONED WELL. MEPILEX DRESSING TO SACARAL/GLUTEAL AREA PEELED BACK. NOTED FISSURE. NO BLEEDING. WILL CONTINUE TO REPOSITION PT WITHOUT ALLOWING FOR DIRECT PRESSURE. WILL CONTINUE TO MONITOR PT.
[2022-03-19 03:32] LABS: BASOPHILS ABSOLUTE AUTO 0.05 K/mm3 (0.00-0.23); BASOPHILS PERCENT AUTO 0 % (0-2); EOSINOPHILS PERCENT AUTO 0 % (0-6); Hematocrit 31.7 % (37.0-53.0); Hemoglobin 10.4 g/dL (13.5-17.5); IMMATURE GRAN ABSOLUTE AUTO 0.56 K/mm3 (0.00-0.10); IMMATURE GRAN PERCENT AUTO 3 % (0-1); LYMPHOCYTES ABSOLUTE AUTO 1.44 K/mm3 (0.84-5.20); LYMPHOCYTES PERCENT AUTO 7 % (21-46); MONOCYTES PERCENT AUTO 9 % (4-13); Mean Corpuscular HGB 35.9 pg (26.0-34.0); Mean Corpuscular HGB Conc 32.8 g/dL (31.5-36.5); Mean Corpuscular Volume 109 fL (80-100); Mean Platelet Volume 9.3 fL (9.1-12.4); NEUTROPHILS ABSOLUTE AUTO 15.83 K/mm3 (1.96-9.15); NEUTROPHILS PERCENT AUTO 81 % (41-73); NRBC ABSOLUTE 0.06 K/mm3 (0.00-0.02); NRBC Auto 0.3 /100 WBC (0.0-0.2); Platelet Count 262 K/mm3 (150-400); RDW Standard Deviation 60.3 fL (35.1-46.3); White Blood Cell Count 19.58 K/mm3 (4.00-11.30)
--- NOTE | 2022-03-19 03:38 | NUR ---
PT CONTINUES WITH SINGULTUS. PT STATES THAT WHEN HE FALLS ASLEEP THE HICCUPS ARE WAKING HIM BACK UP. HAVE NOTED THAT PT'S HEART RATE REMAINS ELEVATED. HAVE MEDICATED PT WITH ZOFRAN FOR NAUSEA. PT HAS VERY SMALL EMESIS EARLIER. REMAINS WITH LEVOPHED DRIP AT 8 MCG'S. HAVE BEEEN UNSUCCESSFUL AT TITRATING THIS DOWN.
[2022-03-19 03:52] LABS: Albumin, Blood 2.5 g/dL (3.4-5.0); Anion Gap 15 mmol/L (6-16); Blood Urea Nitrogen 35 mg/dL (8-24); Bun/Creatinine Ratio 9.9 (12.0-20.0); CO2, Blood 24 mmol/L (21-32); Calcium, Blood 8.4 mg/dL (8.5-10.1); Chloride, Blood 100 mmol/L (98-108); Creatinine, Blood 3.52 mg/dL (0.60-1.20); Glomerular Filtration Rate 16 (60-); Glucose, Blood 182 mg/dL (70-99); Magnesium, Blood 1.9 mg/dL (1.6-2.4); Phosphorus, Blood 4.4 mg/dL (2.5-4.9); Potassium, Blood 3.8 mmol/L (3.5-5.5); Sodium, Blood 139 mmol/L (136-145)
--- NOTE | 2022-03-19 05:49 | NUR ---
PT HAS NOT BEEN ABLE TO SLEEP THIS NIGHT. HAS TOLERATED Q 2 HOUR TURNS FAIR. DOES CALL FOR ADJUSTMENTS WITH TURNS FOR COMFORT. HAVE MEDICATED PT WITH FENTANYL FOR PAIN. ZOFRAN FOR NAUSEA. PT HAS REMAINED PLEASANT AND COOPERATIVE WITH CARE AND ASSESSMENTS. WILL CONTINUE TO MONITOR PT, AND WILL REPORT OFF TO ONCOMING RN.
--- NOTE | 2022-03-19 06:47 | NUR ---
PT HAS HEART RATE DROP FROM 120'S THAT HE HAS MAINTAINED THROUGHOUT THE NIGHT, TO RATE IN 90'S. WITH THIS DROP, PT'S BLOOD PRESSURES DECREASE REQUIRING INCREASE IN LEVOPHED. PT HAS MOIST COUGH SO WAS PROVIDED YAUNKEUR TO SELF CLEAR ANY EXPECTORANTS.
--- NOTE | 2022-03-19 07:15 | NUR ---
Assumed care of pt at 0700. Report received from Alex ARCOS. Pt A&O x 4. Answers questions, follows commands, verbalizes needs. Pleasant and cooperative with care. SpO2 90% or greater room air. 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 Receiving levophed at 13 mcg/min to achieve goal MAP.
--- NOTE | 2022-03-19 08:29 | NUR ---
Meds given crushed in applesauce and followed with 3 spoons of nectar thick cranberry juice. Approx 30 minutes later, pt was coughing and burping a bolus of thick pink material, resembling the medications/applesauce was produced. Unclear if this was an episode of sputum or emesis.
--- NOTE | 2022-03-19 09:25 | NUR ---
Pt sitting up in recliner chair. Mobilized with lift. Tolerated activity well.
--- NOTE | 2022-03-19 10:25 | NUR ---
Pal Care visit and case conference with Jim, RN, AUBREE. Met with pt, Son and PRITI at bedside. Drs have discussed goals of care with family and pt today. Pt is calm and receptive to visit. He looks profoundly fatigued and chief c/o is weakness, not being able to lift his leg. He cont to require pressors, daily dialysis, experiencing nausea and hurting "all over" per pt. Son and PRITI here from [place] and present for Jim fry. They state daughters Tari will be here Wednesday. They understand that has changed antibiotics ordered in hope of better response to suspected continued infection. Pt has multiple severe acute comorbidites and pt/family verbalizes understanding that pt's prognosis is guarded/poor. Family would like to get pt back to [facility] home in [place] but understand that the cost, risk of decline in transit and logistics are major barriers to this plan. All of above discussed with AUBREE who is also following for assist with planning as pt's status evolves. Pt indicated he wants support for s/s management and he is "close to not wanting life prolonging tx" but "not there quite yet". FAmily expressed that pt is wanting them to make medical decisions. They are reluctant to do that and support what ever decision pt makes. Pt may be too overwhelmed, fatigued to be able to make this big goal of care decision at this time. Planned with pt and family to stop in daily for support and conversation re: advanced care planning. Reviewed results of my visit with AUBREE Stephens, RN and carding machine operator.
--- NOTE | 2022-03-19 18:43 | NUR ---
SUMMARY Neuro: A&O x 4. Answers questions. Follows commands. Verbalizes needs. Pleasant and cooperative with care. Lethargic and often falls asleep in absence of stimulation. NPO due to failed speech eval. No PO medications to be given. Musculoskeletal: Moves all extremities with equal strength and range of motion. Resp: SpO2 90% or greater with room air. Lungs coarse t/o. Weak, loose, nonproductive cough. Worked with flutter valve today. Hiccups not as common. Cardiac: Afib with BBB per monitor, rate 90s. Levophed at 20 mcg/min. Goal MAP 50 mmHg. Edema unchanged. GI: No BM this shift. NPO. Pt having reflux/belching. Pantoprazole started. Pt produced AM meds, unclear if this was through coughing or vomiting. : Anuria. Had hemodialysis today. Skin: Unchanged from initial assessment. Sacral dressing changed. Psychosocial: Pt withdrawn. Son and daughter in law at bedside today.
--- NOTE | 2022-03-19 20:00 | NUR ---
ASSUMED CARE OF PT AT 1915. REPORT RECIEVED AT BEDSIDE. PT PRESENTS IN BED. ALERT AND ORIENTED. PLEASANT AND COOPERATIVE WITH CARE AND ASSESSMENT. DENIES PAIN AT THIS TIME. NO SINGULTUS AT THIS TIME. NO BURPING. DISCUSSED THE DAY'S ACTIVITIES AND BEING UP IN RECLINER CHAIR. WELL VISIT FROM FAMILY. PT ACKNOWLEDGED HE ENJOYED SEEING FAMILY AND BEING UP IN RECLINER CHAIR. PT REMAINS ON ROOM AIR WITH SATURATIONS MAINTAINING > 90 PERCENT. LEVOPHED AT 20 MCG'S AND VASOPRESSIN AT 0.04 UNITS PER HOUR. BLOOD PRESSURES SOMEWHAT SOFT BEING PT'S BLOOD PRESSURE ARM ELEVATED SOME SECONDARY TO HIS POSITION. WILL CLOSELY MONITOR. WILL REVIEW CHART AND PLAN OF CARE FOR THIS PT.
[2022-03-20 04:44] LABS: BASOPHILS ABSOLUTE AUTO 0.03 K/mm3 (0.00-0.23); BASOPHILS PERCENT AUTO 0 % (0-2); EOSINOPHILS PERCENT AUTO 0 % (0-6); Hematocrit 29.2 % (37.0-53.0); Hemoglobin 9.5 g/dL (13.5-17.5); IMMATURE GRAN ABSOLUTE AUTO 0.14 K/mm3 (0.00-0.10); IMMATURE GRAN PERCENT AUTO 1 % (0-1); LYMPHOCYTES ABSOLUTE AUTO 1.17 K/mm3 (0.84-5.20); LYMPHOCYTES PERCENT AUTO 7 % (21-46); MONOCYTES ABSOLUTE AUTO 1.02 K/mm3 (0.16-1.47); MONOCYTES PERCENT AUTO 6 % (4-13); Mean Corpuscular HGB 36.1 pg (26.0-34.0); Mean Corpuscular HGB Conc 32.5 g/dL (31.5-36.5); Mean Corpuscular Volume 111 fL (80-100); Mean Platelet Volume 9.6 fL (9.1-12.4); NEUTROPHILS ABSOLUTE AUTO 13.99 K/mm3 (1.96-9.15); NEUTROPHILS PERCENT AUTO 86 % (41-73); Platelet Count 171 K/mm3 (150-400); RDW Coefficient Variation 16.1 % (11.7-14.2); RDW Standard Deviation 60.8 fL (35.1-46.3); Red Blood Cell Count 2.63 M/mm3 (4.30-5.90); White Blood Cell Count 16.35 K/mm3 (4.00-11.30)
[2022-03-20 05:03] LABS: Albumin, Blood 2.3 g/dL (3.4-5.0); Anion Gap 11 mmol/L (6-16); Blood Urea Nitrogen 24 mg/dL (8-24); Bun/Creatinine Ratio 7.7 (12.0-20.0); CO2, Blood 26 mmol/L (21-32); Calcium, Blood 8.2 mg/dL (8.5-10.1); Chloride, Blood 102 mmol/L (98-108); Glomerular Filtration Rate 19 (60-); Glucose, Blood 238 mg/dL (70-99); Magnesium, Blood 1.9 mg/dL (1.6-2.4); Phosphorus, Blood 3.6 mg/dL (2.5-4.9); Potassium, Blood 4.2 mmol/L (3.5-5.5); Sodium, Blood 139 mmol/L (136-145)
--- NOTE | 2022-03-20 06:30 | NUR ---
PT HAS TOLERATED Q 2 HOUR TURNS. PT HAS GOT SOME SLEEP THIS NIGHT. STATES HE IS FEELING SOME BETTER TONIGHT THAN NIGHT PRIOR. HAS BEEN USING YAUNKEUR TO SELF CLEAR SECRETIONS. HAVE ASSISTED PT WITH POSITION IN BED (CHAIR) TO HELP WITH COUGH EFFORT. WILL CONTINUE TO MONITOR PT, AND WILL REPORT OFF TO ONCOMING RN.
--- NOTE | 2022-03-20 07:15 | NUR ---
Assumed care of pt at 0700. Report received from Alex ARCOS. Pt A&O x 4. Answers questions, follows commands, verbalizes needs. Pleasant and cooperative with care. Lethargic and often falls asleep in absence of stimulation. SpO2 90% or greater with 2 LPM NC. A fib per monitor with BBB, rate 110. BP stable, MAP goal achieved with 20 mcg/min levophed and vasopressin 0.04 units/minute.
--- NOTE | 2022-03-20 13:37 | NUR ---
Pal care visits this am, prior to Dr rounding and during Manager In Training rounding after MDT meeting. During rounding, pt is grimacing and frowning with furrowed brow. He had just received a bed bath and was repositioned on his left side. Pt reported extreme discomfort and requested repositioning again. Staff repositioned and although pt reported it felt better, he also stated he was still in pain. Discussed options for tx discomfort with rn relief charge. obtained further hx from family and gave thorough update on current issues, concerns and options. If pt was able to travel by private car family would like to get him home with two daughters in [place]. It appears that possibility is unlikely at this time but attempts being made to further stabilize pt's condition so that going home with hospice may be an option. Pt is extremely [place] [employer] [employer] and was not able to follow most of this ams conversation but during exam, also explained to pt, in very simple terms, the current plan for his care. Pt's resp rate was 30-34, while showing nonverbal indicators of pain/discomfort. Pt's BP cont to run low. Pressors, including increasing number and dosing, remain necessary for viable BP. made clear to pt and family that we are nearly out of options in regard to meds/tx available to add to current care regime if the current tx does not effect improvement. Pt and family verbalize good understanding. After left the room I checked in with family for any further clarification or information needs. They felt they understood the large amount of information provided to them and expressed appreciation for the thorough work up and discussion they had with the Dr. The expressed gratitude for entire staff and care encountered during their dad's stay here. Planned with family to meet with additional family members in the am when they arrive. Son and DIL are leaving to return home to [place] today. Will f/u for advanced care/EOL care planning and s/s assessment and support.
[2022-03-20 14:49] LABS: Vancomycin, Random 8.7 ug/mL
--- NOTE | 2022-03-20 15:30 | NUR ---
Upon discussing echo results with tech, Dr Loo ordered troponin and digoxin. Digoxin for rate control with rapid afib. Criticial troponin results received. Dr Loo notified. Provider placed call to Dr Meneses to consult. Gideon recommended medical management and stated pt is not a candidate for PCI or anticoagulation.
--- NOTE | 2022-03-20 19:00 | NUR ---
ASSUMED CARE ASSUMED CARE OF PATIENT. AWAKE AND ALERT, VISITING WITH FAMILY. ORIENTED TO SELF, FAMILY, MONTH/YEAR, AND EVENT. SPEECH IS GARBLED AND SLOW, BUT ANSWERS QUESTIONS APPROPRIATELY. MOVES ALL EXTREMITIES WEAKLY. C/O GENERAL DISCOMFORT, BUT DENIES ACUTE PAIN. MONITOR SHOWS AFIB WITH BBB, RATE 50s-60s. LEVOPHED INFUSING AT 20MCG/MIN AND VASOPRESSIN AT 0.04UNITS/MIN TO MAINTAIN MAP >50. O2 AT 2LNC TO MAINTAIN SATS >90%. RESPIRATIONS EVEN, BUT SHALLOW AND TACHYPNEIC. NPO D/T ASPIRATION RISK. MOLINA PATENT, DRAINING SCANT DARK YELLOW URINE. RIJ TRIALYSIS CATHETER NOTED- PRESSORS RUNNING THROUGH EXTRA PORT. PERMACATH NOTED TO LEFT UPPER CHEST. POWERGLIDE TO JULIO. SEE SHIFT ASSESSMENT FOR FULL ASSESSMENT.
--- NOTE | 2022-03-20 19:13 | NUR ---
SUMMARY No acute changes to initial assessment. Pt remains on 20 mcg/min levophed and vasopressin at 0.04 units per minute. Pt's daughters Hiral and Jennifer at bedside awaiting update from Dr Loo. Pt remains in afib/aflutter with rate 110s. Pt SpO2 90% or greater with 2 LPM NC. No BM this shift. Pt remains strict NPO. Minimal urine output from santiago today. Pt did not have hemodialysis today. Bath, shave, and linen change provided for patient today.
--- NOTE | 2022-03-21 00:30 | NUR ---
NT SUCTION PT CONTINUES WITH MOIST COUGH AND IS STILL UNABLE TO COUGH UP SPUTUM. NT SX'd AT THIS TIME- LARGE AMOUNT OF TANNISH-YELLOW SPUTUM.
[2022-03-21 04:19] LABS: BASOPHILS ABSOLUTE AUTO 0.03 K/mm3 (0.00-0.23); BASOPHILS PERCENT AUTO 0 % (0-2); EOSINOPHILS PERCENT AUTO 0 % (0-6); Hematocrit 25.9 % (37.0-53.0); Hemoglobin 8.7 g/dL (13.5-17.5); IMMATURE GRAN ABSOLUTE AUTO 0.14 K/mm3 (0.00-0.10); IMMATURE GRAN PERCENT AUTO 1 % (0-1); LYMPHOCYTES ABSOLUTE AUTO 1.12 K/mm3 (0.84-5.20); LYMPHOCYTES PERCENT AUTO 9 % (21-46); MONOCYTES PERCENT AUTO 8 % (4-13); Mean Corpuscular HGB 37.2 pg (26.0-34.0); Mean Corpuscular HGB Conc 33.6 g/dL (31.5-36.5); Mean Corpuscular Volume 111 fL (80-100); Mean Platelet Volume 10.1 fL (9.1-12.4); NEUTROPHILS ABSOLUTE AUTO 9.73 K/mm3 (1.96-9.15); NEUTROPHILS PERCENT AUTO 82 % (41-73); NRBC ABSOLUTE 0.02 K/mm3 (0.00-0.02); NRBC Auto 0.2 /100 WBC (0.0-0.2); Platelet Count 176 K/mm3 (150-400); RDW Coefficient Variation 15.4 % (11.7-14.2); RDW Standard Deviation 60.1 fL (35.1-46.3); Red Blood Cell Count 2.34 M/mm3 (4.30-5.90); White Blood Cell Count 11.92 K/mm3 (4.00-11.30)
[2022-03-21 04:38] LABS: Albumin, Blood 2.9 g/dL (3.4-5.0); Anion Gap 11 mmol/L (6-16); Blood Urea Nitrogen 32 mg/dL (8-24); Bun/Creatinine Ratio 7.8 (12.0-20.0); CO2, Blood 27 mmol/L (21-32); Calcium, Blood 8.1 mg/dL (8.5-10.1); Chloride, Blood 99 mmol/L (98-108); Creatinine, Blood 4.09 mg/dL (0.60-1.20); Glomerular Filtration Rate 13 (60-); Glucose, Blood 205 mg/dL (70-99); Sodium, Blood 137 mmol/L (136-145)
--- NOTE | 2022-03-21 06:42 | NUR ---
SHIFT SUMMARY PT CHANGED TO DNR STATUS LAST NOC. LEVOPHED INFUSED BETWEEN 14-20MCG/MIN TO MAINTAIN MAP >50. NOW INFUSING AT 14MCG/MIN. VASOPRESSIN AT 0.04UNITS/MIN. MONITOR SHOWS AFIB WITH BBB. ON CPAP INTERMITTENTLY WITH 2-9L BLEED-IN TO MAINTAIN SATS >90%. IN BETWEEN, PT WITH 02 2-4L NC. CONTINUES WITH WET COUGH, BUT IS STILL UNABLE TO COUGH UP SPUTUM. NT SX'd X 2 WITH MODERATE SECRETIONS. ALSO USES FLUTTER VALVE WITH ENCOURAGEMENT. FOREHEAD PROBE CHANGED Q2-3H TO PROTECT SKIN. REMAINS NPO. REPOSITIONED Q1-2H D/T PT'S DISCOMFORT. MEDICATED WITH FENTANYL 25MCG IV X 2 DOSES FOR COMFORT WITH GOOD RESULTS. MOLINA PATENT AND DRAINING TO GRAVITY. ABD US SCHEDULED FOR THIS AM. WILL REPORT TO ONCOMING RN WHEN AVAILABLE.
--- NOTE | 2022-03-21 08:48 | NUR ---
AM NOTE... ASSUMED CARE OF PT AT 0700. THE PT'S FAMILY WAS AT THE BEDSIDE. THE PT TOLD THIS RN AND HIS DAUGHTERS "I'M DONE I JUST WANT TO BE MADE COMFORTABLE IF I CAN'T GO HOME." THIS RN CALLED THE ICU PROVIDER AND NOTIFIED HIM OF THE PT'S DECISION TO TRANSITION TO COMFORT CARE. COMFORT CARE ORDERS PLACED PER DR. BABCOCK. WILL CONTINUE TO MONITOR.
--- NOTE | 2022-03-21 09:50 | NUR ---
PATIENT SCHEDULED FOR HEMODIALYSIS THIS AM. AFTER ORDERS PLACED, CALL RECIEVED FROM MANAGER SIX SIGMA WITH INFORMATION THAT PATIENT HAS DECIDED TO TRANSITION TO COMFORT CARE EFFECTIVE THIS MORNING. FAMILY AT BEDSIDE AND SUPPORTIVE OF THIS DECISION. DR STODDARD NOTIFIED BY PHONE OF THIS CHANGE IN PLAN OF CARE. NO SUPPLIES WASTED.
--- NOTE | 2022-03-21 14:12 | NUR ---
Pal Care visit - Case conference with RN for current status and needs. Stopped by ICU. Pt with s/s managed with rx per eMAR prn. Two daughters at bedside in low conversation with each other. I did not disturb them at this time.
--- NOTE | 2022-03-21 16:11 | NUR ---
PT UPDATE... THE PT PEACEFULLY AT 1546. THE PT'S DAUGHTERS AND THE PROVIDER WAS NOTIFIED. NURSING INSURANCE CODER WAS ALSO NOTIFIED.
--- NOTE | 2022-03-21 17:26 | NUR ---
SHIFT SUMMARY... NO ACUTE CHANGES SINCE PREVIOUS NOTES, THE PT WAS STARTED ON PO CARDIZEM AND THE DRIP WAS STOPPED AT 1730. THE PT'S VS ARE CURRENTLY STABLE. THE PT HAS HAD SEVERAL EPISODES OF YOJANA RED BLOOD WHICH WAS REPORTED TO THE PROVIDERS AND THE PT'S H&H IS TRENDING DOWN WITH ANOTHER CHECK IN 6HRS. THE PT'S LACTIC ACID WAS 2.2, PROVIDER WAS NOTIFIED AND ANTIBIOTICS AND BLOOD CULTURES WERE ORDERED. THE BLOOD CULTURES OBTAINED PRIOR TO STARTING THE ANTIBITOCS. THE PT WAS ABLE TO STAND AND WALK TO THE TOILET WITH MINIMAL ASSIST WITH NO CHANGES TO HIS HR OR BP. THE PT'S WAS AT THE BEDSIDE AND UPDATED ON THE PT'S CONDITION AND PLAN OF CARE. THE PT STARTED TO C/O ABD DISCOMFORT STATING "MY GUT JUST FEELS YUCKY." BT ARE HYPERACTIVE AND PER THE PT'S HIS BELLY SEEMS "BLOATED" THE PT'S ABD IS SOFT TO PALPATION AND SLIGHTLY TENDER TO PALPATION ON THE LEFT SIDE. THE PT HAS HAD MINIMAL PO INTAKE THIS SHIFT APROX 300MLS OF WATER AND NONE OF HIS MEAL TRAYS. PLAN OF CARE IS FOR THE PT TO HAVE ANOTHER EGD TOMORROW AT [address] SIMMONS, DR. SIMMONS WAS AT THE BEDSIDE AT 1720 TO ASSESS THE PT, NO NEW ORDERS WERE GIVEN AND THE PROVIDER WAS UPDATED ON THE PT'S YOJANA RED STOOL. CALL LIGHT IN REACH WILL CONTINUE TO MONITOR UNTIL REPORT IS GIVEN TO ONCOMING RN.
== END 2022-03-21 15:46 | DRG 871 ==
LOC: ICUE 18:40
PROVIDERS: Internal Medicine; Internal Medicine Critical Care Medicine; Internal Medicine Interventional Cardiology; Internal Medicine Nephrology; Surgery; ADMIT Family Medicine
PROC: 3E033XZ Introduction of Vasopressor into Peripheral Vein, Percutaneous Approach (ICD-10-PCS; principal; 2022-03-12)
PROC: 3E03329 Introduction of Other Anti-infective into Peripheral Vein, Percutaneous Approach (ICD-10-PCS; 2022-03-12)
PROC: 5A1D70Z Performance of Urinary Filtration, Intermittent, Less than 6 Hours Per Day (ICD-10-PCS; 2022-03-12)
PROC: 0W9D30Z Drainage of Pericardial Cavity with Drainage Device, Percutaneous Approach (ICD-10-PCS; 2022-03-12)
PROC: 02HV33Z Insertion of Infusion Device into Superior Vena Cava, Percutaneous Approach (ICD-10-PCS; 2022-03-12)
PROC: B5181ZA Fluoroscopy of Superior Vena Cava using Low Osmolar Contrast, Guidance (ICD-10-PCS; 2022-03-12)
PROC: 04HY32Z Insertion of Monitoring Device into Lower Artery, Percutaneous Approach (ICD-10-PCS; 2022-03-12)
PROC: 4A133B1 Monitoring of Arterial Pressure, Peripheral, Percutaneous Approach (ICD-10-PCS; 2022-03-12)
PROC: 4A133J1 Monitoring of Arterial Pulse, Peripheral, Percutaneous Approach (ICD-10-PCS; 2022-03-12)
PROC: 02HV33Z Insertion of Infusion Device into Superior Vena Cava, Percutaneous Approach (ICD-10-PCS; 2022-03-12)
PROC: 0JH63XZ Insertion of Tunneled Vascular Access Device into Chest Subcutaneous Tissue and Fascia, Percutaneous Approach (ICD-10-PCS; 2022-03-17)
PROC: 5A09357 Assistance with Respiratory Ventilation, Less than 24 Consecutive Hours, Continuous Positive Airway Pressure (ICD-10-PCS; 2022-03-21)
DX: A41.9 Sepsis, unspecified organism (principal); J96.01 Acute respiratory failure with hypoxia; R65.21 Severe sepsis with septic shock; N17.0 Acute kidney failure with tubular necrosis; N18.6 End stage renal disease; I31.3 Pericardial effusion (noninflammatory); I31.4 Cardiac tamponade; N39.0 Urinary tract infection, site not specified; I12.0 Hypertensive chronic kidney disease with stage 5 chronic kidney disease or end stage renal disease; N25.81 Secondary hyperparathyroidism of renal origin; Z51.5 Encounter for palliative care; Z20.822 Contact with and (suspected) exposure to COVID-19; I48.91 Unspecified atrial fibrillation; D63.1 Anemia in chronic kidney disease; E11.22 Type 2 diabetes mellitus with diabetic chronic kidney disease; R13.10 Dysphagia, unspecified; I25.10 Atherosclerotic heart disease of native coronary artery without angina pectoris; D75.89 Other specified diseases of blood and blood-forming organs; E87.5 Hyperkalemia; R57.0 Cardiogenic shock; M54.9 Dorsalgia, unspecified; M19.90 Unspecified osteoarthritis, unspecified site; Z96.698 Presence of other orthopedic joint implants; E78.00 Pure hypercholesterolemia, unspecified; H91.90 Unspecified hearing loss, unspecified ear; I08.1 Rheumatic disorders of both mitral and tricuspid valves; N40.0 Benign prostatic hyperplasia without lower urinary tract symptoms; M10.9 Gout, unspecified; H40.9 Unspecified glaucoma; G47.33 Obstructive sleep apnea (adult) (pediatric); E66.01 Morbid (severe) obesity due to excess calories; I44.7 Left bundle-branch block, unspecified; Z99.81 Dependence on supplemental oxygen; Z95.5 Presence of coronary angioplasty implant and graft; Z90.49 Acquired absence of other specified parts of digestive tract; Z86.79 Personal history of other diseases of the circulatory system; Z79.899 Other long term (current) drug therapy; Z79.01 Long term (current) use of anticoagulants; Z79.02 Long term (current) use of antithrombotics/antiplatelets; Z98.890 Other specified postprocedural states; Z79.82 Long term (current) use of aspirin; Z79.4 Long term (current) use of insulin; Z79.2 Long term (current) use of antibiotics; Z68.36 Body mass index [BMI] 36.0-36.9, adult
CPT/HCPCS: 0241U; 33016; 36415; 36556; 36620; 71045; 76705; 76770; 77001; 80048; 80069; 80074; 80202; 81001; 82042; 82306; 82330; 82533; 82550; 82570; 82607; 82728; 82746; 82803; 82945; 82947; 83540; 83550; 83605; 83615; 83735; 83970; 83986; 84100; 84156; 84157; 84165; 84484; 84550; 85014; 85018; 85025; 85520; 85610; 85730; 86317; 87070; 87086; 87205; 88108; 88305; 89051; 92526; 92610; 93005; 93010; 93306; 93308; 93321; 94660; 94760; 94762; 97110; 97162; 97166; 97530; A9270; C1729; C1750; C1751; C1752; C1894; C9113; J0610; J0696; J0780; J1160; J1170; J1642; J1644; J1815; J2250; J2405; J2543; J2704; J3010; J3370; J7030; J7040; J7060; P9046; Q5106; Q9967